=== PATIENT | female | born 1995 | race African-American/Black ===

== ENCOUNTER 2017-10-17 08:19 | Emergency (ER) | payer OTHER ==
[~2017-10-17] VITALS: Ht 162.6 cm; Wt 73.0 kg
[2017-10-17 10:24] VITALS: BP 108/71
== END 2017-10-17 11:37 | disposition left against medical advice (07) ==
LOC: ER 09:47
DX: Z53.21 Procedure and treatment not carried out due to patient leaving prior to being seen by health care provider (principal)
CPT/HCPCS: 81025

== ENCOUNTER 2020-09-28 20:33 | Emergency (ER) | payer MEDICAID, OTHER ==
[~2020-09-28] VITALS: Ht 165.1 cm; Wt 89.0 kg
[2020-09-28 20:52] VITALS: BP 102/63
== END 2020-09-28 22:05 | disposition left against medical advice (07) ==
LOC: ER 20:33
DX: Z53.21 Procedure and treatment not carried out due to patient leaving prior to being seen by health care provider (principal)